=== PATIENT | male | born 1970 | race Caucasian/White ===

== ENCOUNTER → 2018-10-25 | Outpatient (CLI) | payer OTHER ==
--- NOTE | 2018-10-25 21:18 | REP ---
Clinical: Lateral foot pain. Technique: AP, lateral, bilateral oblique views of the right foot. Findings: There is a nondisplaced Dukes fracture at the base of the fifth metatarsal bone. Remainder examination appears normal for age. Impression: Nondisplaced Dukes fracture at the base of the fifth metatarsal bone. Electronically Signed by Robert Landaverde MD 10/25/2018 09:10 P
== END ==
LOC: M WUC 18:42
PROVIDERS: ATTEND Physician Assistant
DX: S92.354A Nondisplaced fracture of fifth metatarsal bone, right foot, initial encounter for closed fracture (principal); X58.XXXA Exposure to other specified factors, initial encounter; Y92.89 Other specified places as the place of occurrence of the external cause

== ENCOUNTER → 2023-08-27 | Outpatient (REF) | payer OTHER | LOC: M LAB REF 12:49 | PROVIDERS: ATTEND Internal Medicine | DX: Z13.89 Encounter for screening for other disorder (principal) ==

== ENCOUNTER 2024-06-24 13:33 | Emergency (ER) | payer OTHER ==
[~2024-06-24] VITALS: Ht 172.7 cm; Wt 102.3 kg
[2024-06-24] MEDS ORDERED: LISI10TA22 (13:59)
[2024-06-24 15:27] VITALS: BP 140/80; TEMP 96.8; O2SAT 97
== END 2024-06-24 15:31 | disposition home or self-care (01) ==
LOC: M ED 13:33
DX: S06.0X9A Concussion with loss of consciousness of unspecified duration, initial encounter (principal); S00.93XA Contusion of unspecified part of head, initial encounter; W00.0XXA Fall on same level due to ice and snow, initial encounter; I10 Essential (primary) hypertension; E78.5 Hyperlipidemia, unspecified; Y92.014 Private driveway to single-family (private) house as the place of occurrence of the external cause; Y93.89 Activity, other specified; Y99.9 Unspecified external cause status; Z79.899 Other long term (current) drug therapy